=== PATIENT | female | born 1990 | race Asian ===

== ENCOUNTER → 2020-01-10 | Outpatient (CLI) | payer BC ==
[~2020-01-10] MED LIST: FERROUS SU325 MG/TAB PO; IBU600 MG PO; PERCOCET 325 MG1 TA2 PO; PRENATAL TABLET PO
--- NOTE | 2020-01-10 16:35 | NUR ---
Pt, Cate Jacob, presents for consult with 2.5 month old baby boy, Alejandro Bustos, and her spouse Akash. They have requested assistance evaluating Alejandro's bottle feeding effort and feeding pattern. Alejandro was born on [birth year] and weighed 7#5.6oz (3335 gms). Because of difficult latching pt started pumping and providing breastmilk by bottle. Today Alejandro weighs 13#10 oz, for a gain of 1#10 oz from his 2 month appt. At this appointment she states they feel like they have to force Alejandro to eat as he only drinks a couple ounces from the bottle before he starts to loose interest, stops the sucking effort, and pushing the bottle away. At most feedings he does not start the feeding very eager. After working with him for an hour they can usually get 80-140ml into him. Pt recorded intake recently, and on 01/08/20 Alejandro drank 730 ml and on 01/09/20 he drank 590 ml. Again, the family states they are "forcing" him to drink the amounts. They have tried to follow the suggestion from Dr. Cheryl Palma of feeding 2oz every 2 hours in the daytime, but they cannot get him to finish the amount in 20 minutes. Pt reports Alejandro has a good 3 hour nap starting about 11 am, and sleeps well at noc, 5-7 hours. At this feeding FOB feeds the bottle of fresh breastmilk to Alejandro and it took about 15 minutes to drink 1oz. He lets the bottle nipple sit in his mouth but does not suckle. LC places about 1oz of the milk into a volu-feed with a similac nipple and Alejandro takes the volume more quickly. The remainder of the EBM is placed into the volu-feed and he take a little more. Post feed gain is 2.6oz (70 gms), feeding time was about 30 minutes. suggests using a bottle that is easier to get milk from such as the Dr. Lozoya, and try a higher flow rate nipple. They do have a higher flow nipple for the [employer]ice bottles they are using. If Alejandro starts drinking more efficiently, they can continue feedings in this manner. If Alejandro continues to be a slow eater, try waiting longer, 3 hours is suggested, to let him have more time to digest and become hungrier for the next feeding. Try getting him to take 3 oz per feeding. Also, monitor for his body language that indicates he is not really hungry, and allowing more time between feedings. Discussed some babies are oral and because he places his hands to his mouth a lot does not always mean he needs fed and trying a pacifier may help get more time between feedings and build his appetite. POC: Try faster flow nipple, and/or spacing feedings to 3 hours during the daytime and on demand at [facility]. F/U: Pt is to report to this LC at start of next week to evaluate feedings and schedule at least a weight check to ensure the change in feedings has not slowed Alejandro's weight to out of desired range. Questions invited and answered.
== END ==
LOC: LAC 14:09
DX: Z39.1 Encounter for care and examination of lactating mother (principal); Z71.89 Other specified counseling